=== PATIENT | female | born 2000 | race Two or more races ===

== ENCOUNTER 2020-05-26 15:47 | Emergency (ER) | payer MEDICAID, OTHER ==
[~2020-05-26] VITALS: Ht 154.9 cm; Wt 52.6 kg
[2020-05-26 22:43] VITALS: BP 130/85
== END 2020-05-26 22:41 | disposition home or self-care (01) ==
LOC: ER 15:47
DX: O46.91 Antepartum hemorrhage, unspecified, first trimester (principal); Z3A.01 Less than 8 weeks gestation of pregnancy
CPT/HCPCS: 36415; 76801; 76817; 84702